=== PATIENT | female | born 1990 | race Hispanic/Latino ===

== ENCOUNTER 2022-06-12 20:41 | Day surgery (SDC) | payer BC, OTHER ==
[~2022-06-12 20:41] MED LIST: Iopamidol 300 61% 100 ML VIAL FS ONE
[2022-06-12] MEDS ORDERED: Morphine 4 MG/ML VIAL ONE (21:18)
[2022-06-12] MEDS ORDERED: Ketorolac Tromethamine 30 MG/ML VIAL ONE (21:19)
[2022-06-12] MEDS ORDERED: Ondansetron PF 4 MG/2 ML Vial ONE (21:19)
[2022-06-12 21:27] LABS: #Eosinphils 0.2 10x3/uL (0.0-0.5); #Monocytes 0.5 10x3/uL (0.0-1.1); #Neutrophils 5.8 10x3/uL (1.5-8.4); %Basophils 0.1 % (0.0-2.0); %Eosinophils 2.8 % (0.0-6.0); %Lymphocytes 17.9 % (18.0-47.0); %Neutrophils 73.1 % (40.0-75.0); BHCG - Serum Negative (NEGATIVE); Hemoglobin 13.2 g/dL (12.0-15.5); Mean Corpuscular HGB CONC 33.8 g/dL (32.0-36.0); Mean Corpuscular Hemoglobin 25.1 pg (27.0-33.0); Mean Corpuscular Volume 74.1 fl (81.6-98.3); Mean Platelet Volume 10.3 fl (7.4-10.4); Platelet Count 235 10x3/uL (150-450); Pregs Control Background? CLEAR/WHITE (CLR/WHITE); Pregs Control Bar Appear? YES (CONTROL BAR); RBC Distribution Width 14.8 % (11.5-14.5); Red Blood Cell (RBC) Count 5.26 10x6/uL (3.90-5.03)
[2022-06-12 21:40] LABS: Anion Gap 13 mmol/L (10-20); BUN (Urea Nitrogen) 15 mg/dL (7.0-18.7); Calc. Creatinine Clearance 0 mL/min (70-130); Carbon Dioxide 24 mmol/L (22-29); Chloride 102 mmol/L (98-107); Potassium 3.9 mmol/L (3.5-5.1); Sodium 135 mmol/L (136-145)
[2022-06-12 21:41] LABS: ALT (SGPT) 16 U/L (8-55); AST (SGOT) 27 U/L (5-34); Albumin 4.5 g/dL (3.5-5.0); Alkaline Phosphatase 107 U/L (40-110); Bilirubin, Total 0.3 mg/dL (0.2-1.2); CK (CPK) 184 U/L (29-168); Calcium 9.7 mg/dL (7.8-10.44); Estimated GFR 100; Globulin 4.1 g/dL (2.4-3.5); Glucose 92 mg/dL (70-105); Lipase 24 U/L (8-78); Protein, Total 8.6 g/dL (6.0-8.3)
[2022-06-12] MEDS ORDERED: Piperacillin/Tazobactam 4.5 GM VIAL ONE (22:28)
[2022-06-12 22:42] LABS: Bilirubin Neg (Negative); Blood, Urine Negative (Negative); Clarity Clear (Clear); Glucose, Urine (Dipstick) Normal (Negative); Ketone, Urine Negative (Negative); Leukocyte Negative (Negative); Nitrite Negative (Negative); Protein, Urine (Dipstick) Negative (Neg-Trace); Specific Gravity, Urine 1.015 (1.002-1.036); Urobilinogen Normal mg/dL (Less than 2)
[2022-06-12 23:20] LABS: SARS-CoV-2 NAA Rapid Test Not Detected (NotDetected)
[2022-06-13] MEDS ORDERED: Morphine 4 MG/ML VIAL ONE (01:26)
[2022-06-13] MEDS ORDERED: D5 1/2 NS w/20 mEq KCL 1,000 ML ONE (06:49)
[2022-06-13] MEDS ORDERED: Piperacillin/Tazobactam 4.5 GM VIAL ONE (07:18)
[2022-06-13] MEDS ORDERED: Bupivacaine 0.25% HCL 30 ML VIAL ONE (10:16)
[2022-06-13] MEDS ORDERED: EPINEPHrine 1 MG/ML AMP ONE (10:16)
[2022-06-13] MEDS ORDERED: ceFOXitin 1 GM VIAL IM SCH (11:15)
[2022-06-13 11:43] VITALS: BMI 19.3
[2022-06-13] MEDS ORDERED: PROPOFOL 20 ML ONE (11:44)
[2022-06-13] MEDS ORDERED: Dexamethasone 4 mg/ml Vial ONE (11:45)
[2022-06-13] MEDS ORDERED: Succinylcholine 200 MG/10 ml SYRINGE FS ONE (11:45)
[2022-06-13] MEDS ORDERED: Vecuronium 10 MG VIAL ONE (11:45)
[2022-06-13] MEDS ORDERED: Fentanyl 100 MCG/2 ML VIAL ONE (11:45)
[2022-06-13] MEDS ORDERED: Lidocaine 1% PF 5 ML VIAL ONE (11:45)
[2022-06-13] MEDS ORDERED: Ondansetron PF 4 MG/2 ML Vial ONE (11:45)
[2022-06-13] MEDS ORDERED: Ketorolac Tromethamine 30 MG/ML VIAL ONE (12:17)
[2022-06-13] MEDS ORDERED: HYDROcodone/Acetaminophen 5/325 mg Tablet ONE (13:32)
== END 2022-06-13 16:30 | disposition home or self-care (01) ==
LOC: CSHERS 20:41 → CSHSDC/OP 06-13 11:34
PROVIDERS: ATTEND Surgery
PROC: 0DTJ4ZZ Resection of Appendix, Percutaneous Endoscopic Approach (ICD-10-PCS; principal; 2022-06-13)
DX: K35.31 Acute appendicitis with localized peritonitis and gangrene, without perforation (principal); K38.8 Other specified diseases of appendix; Z20.822 Contact with and (suspected) exposure to COVID-19
CPT/HCPCS: 36416; 74177; 80053; 81003; 82550; 83690; 84703; 85025; 88304; A4649; J0171; J0694; J1100; J1885; J2270; J2405; J2543; J2704; J3010; J3480; Q9967; S0020; U0002

== ENCOUNTER 2022-06-23 17:11 | Observation (INO) | payer BC ==
[2022-06-23 18:16] LABS: #Eosinphils 0.2 10x3/uL (0.0-0.5); #Monocytes 0.6 10x3/uL (0.0-1.1); #Neutrophils 5.1 10x3/uL (1.5-8.4); %Basophils 0.3 % (0.0-2.0); %Eosinophils 3.2 % (0.0-6.0); %Lymphocytes 16.9 % (18.0-47.0); %Monocytes 8.3 % (0.0-10.0); %Neutrophils 70.9 % (40.0-75.0); Hemoglobin 10.1 g/dL (12.0-15.5); Mean Corpuscular HGB CONC 32.6 g/dL (32.0-36.0); Mean Corpuscular Volume 76.7 fl (81.6-98.3); Mean Platelet Volume 9.7 fl (7.4-10.4); Platelet Count 397 10x3/uL (150-450); RBC Distribution Width 15.9 % (11.5-14.5); Red Blood Cell (RBC) Count 4.04 10x6/uL (3.90-5.03); White Blood Cell (WBC) Count 7.1 10x3/uL (3.5-10.5)
[2022-06-23 18:19] LABS: Bilirubin Neg (Negative); Blood, Urine 25 (Negative); Clarity Slightly Cloudy (Clear); Glucose, Urine (Dipstick) Normal (Negative); Ketone, Urine 15 mg/dL (Negative); Leukocyte 100 (Negative); Nitrite Negative (Negative); Protein, Urine (Dipstick) 15 mg/dl (Neg-Trace); Urobilinogen Normal mg/dL (Less than 2)
[2022-06-23 18:21] LABS: BHCG - Serum Negative (NEGATIVE); Pregs Control Background? CLEAR/WHITE (CLR/WHITE); Pregs Control Bar Appear? YES (CONTROL BAR)
[2022-06-23 18:27] LABS: ALT (SGPT) 13 U/L (8-55); AST (SGOT) 23 U/L (5-34); Albumin 4.4 g/dL (3.5-5.0); Alkaline Phosphatase 90 U/L (40-110); Anion Gap 12 mmol/L (10-20); BUN (Urea Nitrogen) 11 mg/dL (7.0-18.7); Bilirubin, Total 0.8 mg/dL (0.2-1.2); Calc. Creatinine Clearance 0 mL/min (70-130); Calcium 10.2 mg/dL (7.8-10.44); Carbon Dioxide 26 mmol/L (22-29); Chloride 102 mmol/L (98-107); Estimated GFR 120; Globulin 4.3 g/dL (2.4-3.5); Glucose 90 mg/dL (70-105); Lipase 24 U/L (8-78); Mucous/LPF 1+ LPF (<2+); Potassium 3.6 mmol/L (3.5-5.1); Protein, Total 8.7 g/dL (6.0-8.3); RBC/HPF 0-3 HPF (0-3); Sodium 136 mmol/L (136-145); Transitional Epithelial 0-3 HPF (None Seen)
[2022-06-23 18:28] LABS: Bacteria/HPF 3+ HPF (None Seen)
[2022-06-23] MEDS ORDERED: Ketorolac Tromethamine 30 MG/ML VIAL ONE (18:32)
[2022-06-23] MEDS ORDERED: Ondansetron PF 4 MG/2 ML Vial ONE (18:32)
[2022-06-23 18:50] LABS: SARS-CoV-2 NAA Rapid Test Not Detected (NotDetected)
[2022-06-23] MEDS ORDERED: Piperacillin/Tazobactam 3.375 GM VIAL ONE (19:19)
[2022-06-23 22:53] VITALS: BMI 19.3
[2022-06-24] MEDS ORDERED: Ketorolac Tromethamine 30 MG/ML VIAL IVP PRN (03:37)
[2022-06-24] MEDS ORDERED: Morphine 4 MG/ML VIAL SLOW IVP PRN (03:38)
[2022-06-24] MEDS ORDERED: Ondansetron PF 4 MG/2 ML Vial IVP PRN ×2 (03:45→07:54)
[2022-06-24] MEDS ORDERED: Ondansetron ODT 4 MG TAB SL PRN (03:45)
[2022-06-24] MEDS ORDERED: Sodium Chloride 0.9% 1,000 ML IV SCH (03:45)
[2022-06-24] MEDS ORDERED: Acetaminophen 325 MG TAB PO PRN ×2 (03:45→07:54)
[2022-06-24] MEDS ORDERED: Piperacillin/Tazobactam 3.375 GM in Sodium Chloride 0.9% 100 ML IVPB SCH ×2 (04:00→12:00)
[2022-06-24] MEDS ORDERED: Dextrose 5% in Water 1,000 ML IV PRN (07:54)
[2022-06-24] MEDS ORDERED: Promethazine HCl 25 MG/ML VIAL IM PRN (07:54)
[2022-06-24] MEDS ORDERED: Dextrose 50% Abboject 50 ML SYRINGE SLOW IVP PRN (07:54)
[2022-06-24] MEDS ORDERED: hydrALAZINE 20 MG/ML VIAL SLOW IVP PRN (07:54)
[2022-06-24] MEDS ORDERED: Morphine 2 MG/ML VIAL SLOW IVP PRN (07:54)
[2022-06-24] MEDS ORDERED: D5 1/2 NS w/20 mEq KCL 1,000 ML IV SCH (08:00)
[2022-06-24] MEDS ORDERED: Famotidine/PF 20 mg/2ml Vial SLOW IVP SCH (09:00)
[2022-06-24] MEDS ORDERED: Sodium Bicarbonate 2.5 MEQ/5 ML VIAL ONE (09:03)
[2022-06-24] MEDS ORDERED: Lidocaine 1% PF 5 ML VIAL ONE (09:03)
[2022-06-24] MEDS: Ketorolac Tromethamine 30 MG/ML VIAL IVP SCH ×2 (12:58→17:34)
[2022-06-24 18:25] VITALS: BP 112/70; TEMP 97.1
== END 2022-06-24 19:15 | disposition home or self-care (01) ==
LOC: CSHERS 17:11 → CSHTELE 22:46
PROVIDERS: ADMIT Surgery; ATTEND Surgery
PROC: 0W9G3ZZ Drainage of Peritoneal Cavity, Percutaneous Approach (ICD-10-PCS; principal; 2022-06-24)
DX: R18.8 Other ascites (principal); R10.31 Right lower quadrant pain; Z20.822 Contact with and (suspected) exposure to COVID-19
CPT/HCPCS: 36415; 49020; 74177; 80053; 81003; 81015; 83605; 83690; 84703; 85025; 87040; 87070; 87086; 87205; 94760; 96374; 96375; 96376; G0378; J1885; J2405; J2543; J3480; J3490; J7050; Q9967; S0028; U0002